=== PATIENT | female | born 1995 | race Caucasian/White ===

== ENCOUNTER 2021-10-29 17:59 | Outpatient (CLI) | payer OTHER ==
[~2021-10-29] VITALS: Ht 162.6 cm; Wt 94.3 kg
[2021-10-29 18:12] VITALS: BP 129/81
[2021-10-29] MEDS ORDERED: PRENTAB9 PO ×2 (18:22)
[2021-10-29 19:57] LABS: APPEARANCE, URINE CLEAR (CLEAR); BACTERIA, URINE AUTO NEGATIVE (NEGATIVE); BILIRUBIN, URINE AUTO NEGATIVE (NEGATIVE); BLOOD, URINE BLOOD NEGATIVE (NEGATIVE); COLOR, URINE STRAW (YELLOW); GLUCOSE, URINE (UA) AUTO NEGATIVE (NEGATIVE); KETONE, URINE AUTO NEGATIVE (NEGATIVE); LEUKOCYTE ESTERASE, URINE AUTO TRACE (NEGATIVE); MUCUS, URINE SMALL (NEGATIVE); NITRITE, URINE AUTO NEGATIVE (NEGATIVE); PROTEIN, URINE AUTO NEGATIVE (NEGATIVE); RBC, URINE AUTO 0 /HPF (0-3); SPECIFIC GRAVITY URINE AUTO 1.005 (1.002-1.035); SQUAMOUS EPITHELIAL CELL UR AU 1 /HPF (0-6); UROBILINOGEN, URINE AUTO 0.2 mg/dL (0.0-2.0); WBC, URINE AUTO 2 /HPF (0-3)
== END 2021-10-29 19:20 | disposition home or self-care (01) ==
LOC: M LDO 17:59
PROVIDERS: ATTEND Obstetrics & Gynecology
DX: O47.03 False labor before 37 completed weeks of gestation, third trimester (principal); Z3A.34 34 weeks gestation of pregnancy; Z88.1 Allergy status to other antibiotic agents; Z88.8 Allergy status to other drugs, medicaments and biological substances; Z91.040 Latex allergy status; O26.893 Other specified pregnancy related conditions, third trimester; R30.0 Dysuria
CPT/HCPCS: 59025; 81001; 87086; G0463

== ENCOUNTER 2021-11-22 21:33 | Inpatient (IN) | payer OTHER ==
[~2021-11-22] VITALS: Ht 162.6 cm; Wt 94.5 kg
[~2021-11-22 21:33] MED LIST: PRENTAB9 PO
[2021-11-22 22:06] VITALS: BP 174/95
[2021-11-22] MEDS ORDERED: HOME MED LIST COMPLETE! XX SCH (22:15)
[2021-11-22 22:16] VITALS: BP 131/69
[2021-11-22 23:10] VITALS: BP 127/60
[2021-11-22] MEDS ORDERED: diphenhydrAMINE 25MG CAP PO ONE (23:25)
[2021-11-23] VITALS (10 sets, daily range): BP systolic 107–147; BP diastolic 54–89
[2021-11-23 01:22] LABS: HEMATOCRIT 34.7 % (36.0-47.0); HEMOGLOBIN 10.8 g/dl (12.0-15.5); MEAN CORPUSCULAR HEMOGLOBIN 22.4 pg (27.0-33.0); MEAN CORPUSCULAR HGB CONC 31.1 g/dl (32.0-36.5); PLATELET COUNT, AUTOMATED 206 10^3/uL (150-450); RED BLOOD COUNT 4.82 10^6/uL (4.00-5.40); WHITE BLOOD COUNT 13.3 10^3/uL (4.0-10.0)
[2021-11-23] MEDS ORDERED: BUTORPHANOL 2 MG/ML INJ (J0595) IV ONE (02:55)
[2021-11-23] MEDS ORDERED: PROMETHAZINE 25MG/ML 1ML VIAL IV ONE (02:55)
[2021-11-23] MEDS ORDERED: OXYTOCIN 30 UNITS IN 0.9% NaCl 500ML IV BAG (J2590) As Ordered ONE (05:00)
[2021-11-23] MEDS ORDERED: LIDOCAINE 1% MDV 20ML VIAL As Ordered ONE (05:14)
[2021-11-23] MEDS ORDERED: LIDOCAINE 1% MDV 20ML VIAL INFIL ONE (05:20)
[2021-11-23] MEDS ORDERED: OXYTOCIN DRIP 30 UNITS in IV 1 EA IV SCH (05:20)
[2021-11-23] MEDS ORDERED: DIBUCAINE 1% OINTMENT 30GM TOP PRN (06:10)
[2021-11-23] MEDS ORDERED: DOCUSATE SODIUM 100MG CAPSULE PO PRN (06:10)
[2021-11-23] MEDS ORDERED: ACETAMINOPHEN 500 MG TAB PO PRN (06:10)
[2021-11-23] MEDS ORDERED: RHOGAM 300 MCG (1500 IU) INJ (J2790) IM SCH (06:10)
[2021-11-23] MEDS ORDERED: METHYLERGONOVINE MALEATE 0.2 MG TAB PO PRN (06:10)
[2021-11-23] MEDS ORDERED: ACETAMINOPHEN TAB 650MG DOSE (2X325MG) PO PRN (06:10)
[2021-11-23] MEDS: PRENATAL VITAMINS CHEWABLE TABLET PO SCH (11:30)
[2021-11-23] MEDS: IBUPROFEN 800 MG TAB PO PRN (17:59)
[2021-11-24 06:00] VITALS: BP 136/78
[2021-11-24] MEDS: IBUPROFEN 800 MG TAB PO PRN (06:09)
[2021-11-24] MEDS ORDERED: PRENCHW PO (07:05)
[2021-11-24] MEDS ORDERED: COLA100C5 PO (07:05)
[2021-11-24] MEDS ORDERED: IBUP80TA PO (07:05)
[2021-11-24] MEDS: PRENATAL VITAMINS CHEWABLE TABLET PO SCH (08:05)
[2021-11-25] MEDS ORDERED: MEASLES,MUMPS,RUBELLA VACCINE INJ (MMR-II) (90707) SC.IMMUN ONE (09:00)
== END 2021-11-24 12:33 | disposition home or self-care (01) | DRG 807 ==
LOC: M LDO 21:33 → M LDI 11-23 00:48 → M OBS 11-23 10:27
PROVIDERS: ADMIT Obstetrics & Gynecology; ATTEND Obstetrics & Gynecology
PROC: 10E0XZZ Delivery of Products of Conception, External Approach (ICD-10-PCS; principal; 2021-11-23)
PROC: 0HQ9XZZ Repair Perineum Skin, External Approach (ICD-10-PCS; 2021-11-23)
DX: O26.00 Excessive weight gain in pregnancy, unspecified trimester (principal); Z37.0 Single live birth; Z3A.38 38 weeks gestation of pregnancy; E66.9 Obesity, unspecified; O99.214 Obesity complicating childbirth; Z91.040 Latex allergy status; Z91.041 Radiographic dye allergy status; Z88.8 Allergy status to other drugs, medicaments and biological substances; O70.0 First degree perineal laceration during delivery

== ENCOUNTER 2021-11-27 14:54 | Emergency (ER) | payer OTHER ==
[~2021-11-27] VITALS: Ht 162.6 cm; Wt 89.4 kg
[~2021-11-27 14:54] MED LIST changes: +COLA100C5 PO; +IBUP80TA PO; +PRENCHW PO
[2021-11-27] MEDS ORDERED: NS 1,000 ML IV ONE (17:35)
[2021-11-27 19:01] LABS: BASO % 0.2 % (0.0-1.0); EOS # 0.1 10^3/uL (0.0-0.5); EOS % 0.6 % (0.0-3.0); HEMATOCRIT 36.7 % (36.0-47.0); HEMOGLOBIN 11.1 g/dl (12.0-15.5); LYMPH % 19.3 % (24.0-44.0); MEAN CORPUSCULAR HEMOGLOBIN 22.4 pg (27.0-33.0); MEAN CORPUSCULAR HGB CONC 30.2 g/dl (32.0-36.5); MEAN CORPUSCULAR VOLUME 74.1 fl (80.0-96.0); MONO # 0.6 10^3/uL (0.0-0.8); MONO % 5.6 % (2.0-8.0); NEUTROPHILS # 7.5 10^3/uL (1.5-8.5); NEUTROPHILS % 73.6 % (36.0-66.0); PLATELET COUNT, AUTOMATED 266 10^3/uL (150-450); RED BLOOD COUNT 4.95 10^6/uL (4.00-5.40); WHITE BLOOD COUNT 10.1 10^3/uL (4.0-10.0)
[2021-11-27 19:25] LABS: ALBUMIN 2.6 GM/DL (3.2-5.2); ALT/SGPT 18 U/L (12-78); BILIRUBIN,DIRECT 0.2 MG/DL (0.0-0.2); BILIRUBIN,TOTAL 0.2 MG/DL (0.2-1.0); BLOOD UREA NITROGEN 7 MG/DL (7-18); C REACTIVE PROTEIN QUANTITATIV 4.25 MG/DL (0.00-0.30); CALCIUM LEVEL 7.8 MG/DL (8.5-10.1); CARBON DIOXIDE LEVEL 21 MEQ/L (21-32); CHLORIDE LEVEL 114 MEQ/L (98-107); CREATININE FOR GFR 0.58 MG/DL (0.55-1.30); GLOMERULAR FILTRATION RATE > 60.0 (>60); GLUCOSE, FASTING 86 MG/DL (70-100); HCG, SERUM QUANTITATIVE 307 MIU/ML; SODIUM LEVEL 142 MEQ/L (136-145); TOTAL PROTEIN 5.8 GM/DL (6.4-8.2); URIC ACID 4.9 MG/DL (2.6-6.0)
[2021-11-27 19:57] LABS: APPEARANCE, URINE HAZY (CLEAR); BACTERIA, URINE AUTO NEGATIVE (NEGATIVE); BILIRUBIN, URINE AUTO NEGATIVE (NEGATIVE); BLOOD, URINE BLOOD 3+ (NEGATIVE); COLOR, URINE YELLOW (YELLOW); GLUCOSE, URINE (UA) AUTO NEGATIVE (NEGATIVE); KETONE, URINE AUTO NEGATIVE (NEGATIVE); LEUKOCYTE ESTERASE, URINE AUTO 3+ (NEGATIVE); MUCUS, URINE SMALL (NEGATIVE); NITRITE, URINE AUTO NEGATIVE (NEGATIVE); PROTEIN, URINE AUTO 1+ mg/dL (NEGATIVE); RBC, URINE AUTO TNTC /HPF (0-3); SPECIFIC GRAVITY URINE AUTO 1.015 (1.002-1.035); SQUAMOUS EPITHELIAL CELL UR AU 3 /HPF (0-6); UROBILINOGEN, URINE AUTO 0.2 mg/dL (0.0-2.0); WBC, URINE AUTO 165 /HPF (0-3)
[2021-11-27] MEDS ORDERED: CEPH500C PO (20:39)
[2021-11-27 21:03] VITALS: BP 146/83
== END 2021-11-27 21:09 | disposition home or self-care (01) ==
LOC: M ED 14:54
DX: R10.2 Pelvic and perineal pain (principal); J45.909 Unspecified asthma, uncomplicated; F41.9 Anxiety disorder, unspecified; Z88.1 Allergy status to other antibiotic agents; Z88.6 Allergy status to analgesic agent; Z91.040 Latex allergy status; Z79.899 Other long term (current) drug therapy

== ENCOUNTER → 2024-08-10 | Outpatient (REF) | payer OTHER ==
[~2024-08-10] MED LIST changes: +CEPH500C PO
[2024-08-14 13:23] LABS: HPV APTIMA Not Detected (Not Detected)
== END ==
LOC: M PLALAB 10:00
PROVIDERS: ATTEND Obstetrics & Gynecology
DX: Z01.419 Encounter for gynecological examination (general) (routine) without abnormal findings (principal)
CPT/HCPCS: 87624; G0123

== ENCOUNTER → 2024-09-04 | Outpatient (CLI) | payer OTHER ==
[2024-09-04 12:02] LABS: HEMOGLOBIN A1c 4.6 % (4.0-6.0)
[2024-09-05 08:51] LABS: DEHYDROEPIANDROSTERONE SULFATE 173 mcg/dL (14-349)
== END ==
LOC: M RAD 09:42
PROVIDERS: ATTEND Obstetrics & Gynecology
DX: Z13.89 Encounter for screening for other disorder (principal); N83.201 Unspecified ovarian cyst, right side; Z84.2 Family history of other diseases of the genitourinary system